=== PATIENT | female | born 1980 | race Caucasian/White ===

== ENCOUNTER 2019-10-23 06:34 | Outpatient (CLI) | payer OTHER ==
[2019-10-23 12:29] LABS: Mean Corpuscular HGB CONC 34.4 g/dL (32.0-36.0); Mean Corpuscular Hemoglobin 31.3 pg (27.0-31.0); Mean Platelet Volume 9.2 fL (7.4-10.4); Platelet Count 145 thou/uL (130-400); RBC Distribution Width 11.8 % (11.5-14.5); Red Blood Cell (RBC) Count 4.46 mill/uL (4.20-5.40); White Blood Cell (WBC) Count 6.1 thou/uL (4.8-10.8)
[2019-10-23 18:20] LABS: SARS-CoV-2 MS2 Positive; SARS-CoV-2 N Gene Negative; SARS-CoV-2 S Gene Negative; SARS-CoV-2 orf1ab Negative
== END 2019-10-23 06:35 | disposition home or self-care (01) ==
LOC: LABBT 06:34
PROVIDERS: ATTEND Obstetrics & Gynecology
DX: Z01.812 Encounter for preprocedural laboratory examination (principal); Z11.59 Encounter for screening for other viral diseases; R87.613 High grade squamous intraepithelial lesion on cytologic smear of cervix (HGSIL)
CPT/HCPCS: 85027; 86850; 86900; 86901; 87635; U0003

== ENCOUNTER 2019-10-27 05:58 | Day surgery (SDC) | payer OTHER ==
[2019-10-23 11:29] VITALS: BMI 22.4
--- NOTE | 2019-10-23 18:13 | HP ---
She is scheduled for hysterectomy on 10/27/2019. HISTORY OF PRESENT ILLNESS: Ms. Torres is a 39-year-old white female, G2, P2, who has had a history of a previous LEEP for high-grade cervical dysplasia in 2010. 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 She is also having heavy menstrual cycles. Due to the recurrent high-grade cervical dysplasia and episodic menorrhagia, she is desiring definitive surgical therapy. PAST SURGICAL HISTORY: Being the previous LEEP of her cervix in 2010. PAST MEDICAL HISTORY: Otherwise, past medical history is negative. OB HISTORY: Two spontaneous vaginal deliveries. ALLERGIES: SHE HAS NO KNOWN DRUG ALLERGIES. SOCIAL HISTORY: She does use tobacco with No illicit drug use. No excessive alcohol use. She reports using approximately one pack per week of smoking. FAMILY HISTORY: Noncontributory. CURRENT MEDICATIONS: Oral contraceptive, Estarylla. PHYSICAL EXAMINATION: VITAL SIGNS: Current vital signs; her height is 5 feet 6 inches, weight 156 pounds, BMI of 25. Blood pressure 116/76, pulse regular 56, respirations 18, O2 saturation on room air 98%. HEENT: Within normal limits. CHEST: Clear to auscultation. HEART: Regular rate and rhythm. S1 and S2 heart sounds. No murmurs, rubs, or gallops. ABDOMEN: Soft, nontender, nondistended with no palpable masses. No hepatosplenomegaly. PELVIC: Vulva and vagina had no lesions. No visible cervical lesion seen. Uterus is small, nontender, mobile. Adnexa nontender with no masses. 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 PLAN: Plan is to proceed with robotic total laparoscopic hysterectomy and bilateral salpingectomy. Risks and benefits of the surgery have been discussed in detail. She is set for surgery for October 26. Job ID: [id number]
[2019-10-27] MEDS ORDERED: Fentanyl 250 MCG/5 ML VIAL ONE (06:23)
[2019-10-27] MEDS ORDERED: Gabapentin 300 MG CAP ONE (06:52)
[2019-10-27] MEDS ORDERED: CeleCOXIB 100 MG CAP ONE (06:52)
[2019-10-27] MEDS ORDERED: Enoxaparin Sodium 30 MG/0.3 ML SYRINGE ONE (06:53)
[2019-10-27] MEDS ORDERED: Lidocaine 1% w/Epinephrine 1:100K 20 ML VIAL ONE (06:53)
[2019-10-27] MEDS ORDERED: Famotidine/PF 20 mg/2ml Vial ONE (06:53)
[2019-10-27] MEDS ORDERED: Bupivacaine PF 0.5% 30 ML VIAL ONE (06:53)
[2019-10-27] MEDS ORDERED: Midazolam HCl 2 mg/2 ml Vial ONE (06:55)
[2019-10-27] MEDS ORDERED: Scopolamine 1.5 mg/72 hour Patch ONE (06:55)
[2019-10-27] MEDS ORDERED: Promethazine HCl 25 MG/ML VIAL IM PRN ×2 (09:00→09:12)
[2019-10-27] MEDS ORDERED: Ondansetron HCl/PF 4 MG/2 ML Vial IVP PRN (09:00)
[2019-10-27] MEDS ORDERED: Promethazine HCl 25 MG/ML VIAL SLOW IVP PRN (09:00)
[2019-10-27] MEDS ORDERED: Meperidine HCl/PF 25 MG/ML VIAL SLOW IVP PRN (09:00)
[2019-10-27] MEDS ORDERED: Zolpidem Tartrate 5 MG TAB PO PRN (09:12)
[2019-10-27] MEDS ORDERED: HYDROcodone/Acetaminophen 5/325 mg Tablet PO PRN (09:12)
[2019-10-27] MEDS ORDERED: Simethicone Chewable 80 MG TAB PO PRN (09:12)
[2019-10-27] MEDS ORDERED: Bisacodyl 10 MG SUPP PR PRN (09:12)
[2019-10-27] MEDS ORDERED: Morphine 4 MG/ML VIAL SLOW IVP PRN (09:12)
[2019-10-27] MEDS ORDERED: Ondansetron PF 4 MG/2 ML Vial IVP PRN (09:12)
[2019-10-27] MEDS ORDERED: diphenhydrAMINE 25 MG CAP PO PRN (09:12)
[2019-10-27] MEDS ORDERED: Fentanyl 100 MCG/2 ML VIAL ONE ×2 (09:24→10:15)
[2019-10-27] MEDS: Ketorolac Tromethamine 30 MG/ML VIAL IVP SCH ×3 (12:29→23:48)
[2019-10-27] MEDS ORDERED: PROPOFOL 200 MG/20 ML VIAL ONE (13:17)
[2019-10-27] MEDS ORDERED: Dexamethasone 20 MG/5 ML VIAL ONE (13:17)
[2019-10-27] MEDS ORDERED: Rocuronium Bromide 10 MG/ML (10ML VIAL) ONE (13:17)
[2019-10-27] MEDS ORDERED: Ondansetron PF 4 MG/2 ML Vial ONE (13:17)
[2019-10-27] MEDS ORDERED: Glycopyrrolate 0.2 MG/ML 5 ML SYRINGE ONE (13:17)
[2019-10-27] MEDS ORDERED: Lidocaine 1% PF 5 ML VIAL ONE (13:17)
[2019-10-27] MEDS: Sodium Chloride 0.9% 1,000 ML IV SCH ×2 (14:27→16:46)
--- NOTE | 2019-10-27 16:07 | OP ---
DATE OF PROCEDURE: 10/27/2019 PREOPERATIVE DIAGNOSES: 1. 39-year-old white female with recurrent high-grade cervical dysplasia. 2. HPV positive type 16. 3. Desires definitive surgical therapy. POSTOPERATIVE DIAGNOSES: 1. 39-year-old white female with recurrent high-grade cervical dysplasia. 2. HPV positive type 16. 3. Desires definitive surgical therapy. PROCEDURES PERFORMED: Robotic total laparoscopic hysterectomy with bilateral salpingectomy. CLINICAL STUDY MANAGER SURGEON: Jessica Castellano PA-C ANESTHESIA: General endotracheal. ESTIMATED BLOOD LOSS: Less than 25 mL. COMPLICATIONS: None. COUNTS: Correct x2. PATHOLOGY: Uterus, cervix, and bilateral fallopian tubes. FINDINGS: 1. Normal-appearing bilateral tubes and ovaries and uterus. 2. Bladder was watertight to fluid distention postprocedure and bilateral ureteral peristalsis was visualized postprocedure and path of ureters were appeared to be below the operative field sites. DISPOSITION: To recovery room, stable. DESCRIPTION OF PROCEDURE: The patient previously received informed consent in regard to surgery. She was taken back to the operating room, where she received a general endotracheal anesthetic agent without complications. She was placed in dorsal lithotomy position with Donald stirrups and prepped and draped in usual sterile fashion. Salinas catheter was placed at this time. A side-arm vaginal retractor was placed in the vagina. The anterior lip of cervix was grasped with a single-tooth tenaculum. The uterus sounded to 7.5 cm. A size 6 cm ANTHONY uterine manipulator with a 4.0 cm cervical cup was then placed. Tenaculum and speculum were removed. Attention was then turned to the abdomen, where perspective trocar sites were infiltrated with 0.5% Marcaine with epinephrine. A 12 mm infraumbilical incision was made. Veress needle entered the peritoneal cavity and the patient's pressure was less than 5 mmHg. Abdomen was insufflated with the patient's pressure of 15, approximately 5 L of carbon dioxide gas. The Veress needle was removed. A 12 mm trocar was placed. The robotic laparoscope was introduced through the trocar sleeve confirming proper entry. The patient was placed in Trendelenburg position. Additional bilateral lower quadrant 8 mm trocars were placed under laparoscopic guidance along with the right upper quadrant 11 mm bilingual executive assistant port. I then broke scrub and my assistants were docked the robot in usual fashion. We then proceeded to carry out the hysterectomy. The uterus was elevated from the pelvis. My bilingual executive assistant grasped the left fallopian tube. The mesosalpinx of the left fallopian tube was coagulated with the bipolar fenestrated cautery and transected with monopolar scissors. The left tube was then removed out through the right upper quadrant port site. The left uterine ovarian ligaments were then coagulated and transected. Serial coagulation of the broad ligament hugging close to uterine specimen again was carried out to the left round ligament was reached. It was coagulated and transected and the anterior leaf of the broad ligament was entered in a layering technique dissecting the anterior vesicouterine peritoneum in a layering fashion, dropping the bladder safely past the cervical vaginal margin. The left uterine vessels were skeletonized and they were then coagulated in the internal cervical os region. The left ureter was noted to be lateral and inferior to the operative sites. This was then carried again in similar fashion on the patient's right side where the right fallopian tube was removed in likewise fashion. Serial coagulation of the right uterine ovarian ligament was coagulated and transected until again the right round ligament was reached. It was coagulated and transected and then layering of the vesicouterine peritoneum was carried out again, dropping the bladder safely past the cervical vaginal margin. The right uterine vessels again were skeletonized and coagulated in the internal cervical os region. We distended the bladder to confirm complete dissection and adequate distance from the anterior colpotomy and the bladder was intact of water fluid distention. The anterior colpotomy was then made superior to this margin over the cervical cup. This was started at 12 o'clock to 9 o'clock and 12 to 3 o'clock position. We coagulated the remainder of the uterine vessels for good hemostasis. The colpotomy was then completed from 6 o'clock to 9 o'clock and 6 o'clock to 3 o'clock. The uterine specimen was delivered into the vaginal vault. My bilingual executive assistant switched out a monopolar scissor with a Terrance needle national dedicated truck driver. The vaginal cuff was then coagulated of any areas of oozing prior to cuff closure. A Stratafix suture was brought into the field by my bilingual executive assistant and then I proceeded to close the vaginal cuff in a running fashion starting at the right vaginal angle towards the left vaginal angle and back towards the midline. The excess suture and needle were cut and then removed and the right upper port intact. The pelvis again was irrigated and suctioned. All the pedicle sites were inspected. Hemostasis was confirmed. Bilateral ureteral peristalsis was visualized and the course of the ureters were inferior and lateral to the operative site. The robot was then undocked. The trocars were removed. I rescrubbed and then we closed the fascial defect in the umbilicus with a [id number] suture of 0 Vicryl. The remainder of the trocar sites were closed with 4-0 Monocryl subcuticular stitch fashion with Dermabond. The vaginal cuff was checked vaginally with a sponge stick and hemostasis of the cuff was confirmed. The patient was awakened and then transferred to recovery room in stable condition. Job ID: [id number]
[2019-10-27] MEDS: HYDROcodone/Acetaminophen 5/325 mg Tablet PO PRN (20:48)
[2019-10-28] MEDS ORDERED: Ibuprofen 800 MG TAB PO SCH (06:00)
[2019-10-28 06:42] VITALS: TEMP 98.7
[2019-10-28 07:17] LABS: Hemoglobin 12.2 g/dL (12.0-16.0); Mean Corpuscular HGB CONC 34.1 g/dL (32.0-36.0); Mean Corpuscular Hemoglobin 30.9 pg (27.0-31.0); Mean Corpuscular Volume 90.7 fL (78.0-98.0); Mean Platelet Volume 9.2 fL (7.4-10.4); Platelet Count 117 thou/uL (130-400); RBC Distribution Width 11.7 % (11.5-14.5); Red Blood Cell (RBC) Count 3.94 mill/uL (4.20-5.40); White Blood Cell (WBC) Count 6.2 thou/uL (4.8-10.8)
[2019-10-28 08:15] VITALS: BP 110/69
--- NOTE | 2019-10-28 08:24 | PDOC.EVN ---
Event Note - Event Note Event Note: S:Tolerating. diet. Good pain control. Ambulating and voiding. o:AFVSS HCT 35.8 ABdomen is soft/non distended. active bowel sounds. trochar sites. C/D/I. A/P: Post op day 1 from tlh/bs for hgsil of cervix. Doing well. d/c home F/u 2 and 6 weeks.
[2019-10-28] MEDS ORDERED: Senokot 8.6 MG TAB PO SCH (09:00)
[2019-10-28] MEDS ORDERED: [UNRECOGNIZED DRUG - OTHER] PO SCH (09:00)
[2019-10-28] MEDS: HYDROcodone/Acetaminophen 5/325 mg Tablet PO PRN (09:42)
--- NOTE | 2019-10-29 02:30 | DIS ---
DATE OF ADMISSION: 10/27/2019 DATE OF DISCHARGE: 10/28/2019 DIAGNOSES: 1. Recurrent high-grade cervical dysplasia. 2. Positive HPV-16 viral infection. 3. Menorrhagia. PROCEDURES PERFORMED: Robotic total laparoscopic hysterectomy with bilateral salpingectomy. SUMMARY OF HOSPITAL COURSE: Ms. Torres is a 39-year-old white female, G2, P2, with history of previous LEEP procedure for high-grade cervical dysplasia. She had recurrence of high-grade cervical dysplasia with positive HPV-16 infection and desires definitive surgical therapy. She also complains of menorrhagia. She underwent an uncomplicated robotic TLH with bilateral salpingectomy on 10/27/2019. Postoperatively, the patient has done well. Vital signs remained stable. Her hematocrit was 35.8% on postop day #1. She is ambulating, tolerating regular diet without difficulty and has good pain control. Pathology is pending. She was discharged home the morning of postop day #1 and has followup in 2 and 6 weeks postop. Tramadol 50 mg q.6 hours as needed for pain, has been given prescription and also to use [id number] ibuprofen or Tylenol for [id number] pain. Job ID: [id number]
== END 2019-10-28 10:05 | disposition home or self-care (01) ==
LOC: SDC 05:58 → 3SW 11:13 → SDC 10-28 10:05
PROVIDERS: ATTEND Obstetrics & Gynecology
PROC: 0UT94ZZ Resection of Uterus, Percutaneous Endoscopic Approach (ICD-10-PCS; principal; 2019-10-27)
PROC: 0UT74ZZ Resection of Bilateral Fallopian Tubes, Percutaneous Endoscopic Approach (ICD-10-PCS; principal; 2019-10-27)
DX: N87.1 Moderate cervical dysplasia (principal); N80.0 Endometriosis of uterus; N92.0 Excessive and frequent menstruation with regular cycle; B97.7 Papillomavirus as the cause of diseases classified elsewhere; N73.6 Female pelvic peritoneal adhesions (postinfective); F17.210 Nicotine dependence, cigarettes, uncomplicated; Z79.3 Long term (current) use of hormonal contraceptives; Z79.899 Other long term (current) drug therapy
CPT/HCPCS: 36415; 85027; 88307; J0690; J1100; J1650; J1885; J2001; J2250; J2405; J2704; J3010; S0020; S0028